=== PATIENT | female | born 1950 | race Caucasian/White ===

== ENCOUNTER 2023-07-15 19:13 | Inpatient (IN) | payer OTHER ==
[~2023-07-15] VITALS: Ht 165.1 cm; Wt 135.6 kg
[2023-07-15 19:18] VITALS: BP 101/55; PULSE 58; RESP 20; TEMP 98.1; O2SAT 100
[2023-07-15 20:15] LABS: BASOPHILS # (AUTO) 0.1 K/uL (0.00-0.22); EOSINOPHILS # (AUTO) 0.4 K/uL (0-0.4); EOSINOPHILS % (AUTO) 4.1 % (0.0-4.0); HEMOGLOBIN 9.9 g/dL (12.0-16.0); LYMPHOCYTES # (AUTO) 1.5 K/uL (2.5-16.5); MEAN CORPUSCULAR HEMOGLOBIN 29 pg (27-31); MEAN CORPUSCULAR HGB CONC 33 g/dL (33-37); MEAN CORPUSCULAR VOLUME 87.7 fL (80-94); MONOCYTES # (AUTO) 0.8 K/uL (0.8-1.0); MONOCYTES % (AUTO) 9.4 % (1.7-9.3); NEUTROPHILS # (AUTO) 5.7 K/uL (1.8-7.7); NEUTROPHILS % (AUTO) 67.5 % (42.2-75.2); PLATELET COUNT (AUTO) 242 K/uL (140-450); RED BLOOD CELL COUNT(AUTO) 3.42 MIL/uL (4.20-5.40); RED CELL DISTRIBUTION WIDTH 17.7 % (11.6-13.7); WHITE BLOOD COUNT (AUTO) 8.5 K/uL (4.8-10.8)
[2023-07-15 20:31] LABS: ALANINE AMINOTRANSFERASE 7 U/L (12-78); ALBUMIN 2.3 g/dL (3.4-5.0); ALKALINE PHOSPHATASE 95 U/L (50-136); ANION GAP 9.9 (8-16); ASPARTATE AMINOTRANSFERASE 13 U/L (15-37); CALCIUM 8.9 mg/dL (8.5-10.1); CARBON DIOXIDE 31.1 mmol/L (21-32); CHLORIDE 110 mmol/L (98-107); CREATININE 1.3 mg/dL (0.6-1.3); GLUCOSE 95 mg/dL (74-106); SODIUM SERUM 147 mmol/L (136-145); TOTAL BILIRUBIN 0.4 mg/dL (0.0-1.0); TOTAL PROTEIN, SERUM 6.4 g/dL (6.4-8.2); UREA NITROGEN, BLOOD 22 mg/dL (7-18)
[2023-07-15 21:00] LABS: BLOOD GAS BASE EXCESS 0.1 mmol/L (-2.0-2.0); BLOOD GAS PCO2 41.5 mmHg (35-45); BLOOD GAS PH 7.398 (7.35-7.45); BLOOD GAS PO2 83.3 mmHg (75-100)
[2023-07-15 21:01] LABS: BLOOD GAS O2 SAT% 95.8 % (92.0-98.5)
[2023-07-15 21:48] LABS: ACETAMINOPHEN < 0.5 ug/ml (10-30); ALCOHOL, BLOOD < 3 mg/dL (<10); SALICYLATE < 2.8 mg/dL (2.8-20.0)
[2023-07-15] MEDS ORDERED: AZITHROMYCIN 250 MG TAB PO ONE (21:55)
[2023-07-15] MEDS ORDERED: cefTRIAXone 1,000 MG VIAL ONE (23:17)
[2023-07-15 23:52] LABS: AMPHETAMINE, URINE NEGATIVE ng/ml (NEG <=1000); BARBITURATE, URINE NEGATIVE ng/ml (NEG <=200); BENZODIAZEPINE, URINE NEGATIVE ng/mL (NEG <=200); CANNABINOID, URINE NEGATIVE ng/mL (NEG <=50); COCAINE, URINE NEGATIVE ng/mL (NEG <=300); OPIATE, URINE POSITIVE ng/mL (NEG <=2000); PHENCYCLIDINE SCREEN,URINE NEGATIVE ng/mL (NEG <=25)
[2023-07-16] VITALS (7 sets, daily range): BP systolic 113–114; BP diastolic 62–72; PULSE 59–66; RESP 14–18; TEMP 97.5–98.2; O2SAT 94–98
[2023-07-16] MEDS ORDERED: AZITHROMYCIN 500 MG INJ VIAL IV ONE (01:18)
[2023-07-16] MEDS: AZITHROMYCIN 500 MG in DEXTROSE 5% 250 ML IV ONE (01:31)
[2023-07-16] MEDS ORDERED: DOCUSATE SODIUM 100 MG GELCAP PO PRN (02:25)
[2023-07-16] MEDS ORDERED: guaiFENesin DM 200/20 MG-10 ML 10 ML UDC PO PRN (02:25)
[2023-07-16] MEDS ORDERED: ONDANSETRON 4 MG/2 ML VIAL IM/IVP PRN (02:25)
[2023-07-16] MEDS: NACL 0.9% 1,000 ML IV SCH (04:30)
[2023-07-16] MEDS: LEVOFLOXACIN 750 MG/D5W PREMIX 150 ML IV SCH (04:33)
[2023-07-16] MEDS ORDERED: BUDE1AER IH (04:42)
[2023-07-16] MEDS ORDERED: FAMO-92 PO (04:42)
[2023-07-16] MEDS ORDERED: HYDR2TAB6 PO (04:42)
[2023-07-16] MEDS ORDERED: LOSA-272 PO (04:42)
[2023-07-16] MEDS ORDERED: GEMF600T5 PO (04:42)
[2023-07-16] MEDS ORDERED: CLOP75TA55 PO (04:42)
[2023-07-16] MEDS ORDERED: CITA20TA15 PO (04:42)
[2023-07-16] MEDS ORDERED: CLON0.5T PO (04:42)
[2023-07-16] MEDS ORDERED: GABA400C PO (04:42)
[2023-07-16] MEDS ORDERED: LISI5TAB18 PO (04:42)
[2023-07-16] MEDS ORDERED: BACL10TA4 PO (04:42)
[2023-07-16] MEDS ORDERED: LOVA40TA4 PO (04:42)
[2023-07-16] MEDS: ALBUTEROL SULFATE/IPRATROPIU 3 ML SOL IH SCH (07:01)
[2023-07-16] MEDS: PANTOPRAZOLE 40 MG TABEC PO SCH (09:00)
[2023-07-16 09:33] LABS: BASOPHILS % (AUTO) 0.7 % (0.0-2.0); EOSINOPHILS # (AUTO) 0.2 K/uL (0-0.4); EOSINOPHILS % (AUTO) 2.8 % (0.0-4.0); HEMATOCRIT 32.2 % (36-48); HEMOGLOBIN 10.3 g/dL (12.0-16.0); LYMPHOCYTES # (AUTO) 0.8 K/uL (2.5-16.5); LYMPHOCYTES % (AUTO) 10.9 % (20.5-51.1); MEAN CORPUSCULAR HEMOGLOBIN 28 pg (27-31); MEAN CORPUSCULAR HGB CONC 32 g/dL (33-37); MEAN CORPUSCULAR VOLUME 88.4 fL (80-94); MONOCYTES # (AUTO) 0.5 K/uL (0.8-1.0); MONOCYTES % (AUTO) 7.7 % (1.7-9.3); NEUTROPHILS # (AUTO) 5.5 K/uL (1.8-7.7); NEUTROPHILS % (AUTO) 77.9 % (42.2-75.2); PLATELET COUNT (AUTO) 190 K/uL (140-450); RED BLOOD CELL COUNT(AUTO) 3.64 MIL/uL (4.20-5.40); RED CELL DISTRIBUTION WIDTH 17.7 % (11.6-13.7); WHITE BLOOD COUNT (AUTO) 7.1 K/uL (4.8-10.8)
[2023-07-16 09:45] LABS: ALBUMIN 2.4 g/dL (3.4-5.0); ALKALINE PHOSPHATASE 103 U/L (50-136); ASPARTATE AMINOTRANSFERASE 15 U/L (15-37); CALCIUM 9.2 mg/dL (8.5-10.1); CARBON DIOXIDE 27.6 mmol/L (21-32); CHLORIDE 109 mmol/L (98-107); CREATININE 1.1 mg/dL (0.6-1.3); GLUCOSE 99 mg/dL (74-106); MAGNESIUM 2.1 mg/dL (1.8-2.4); PHOSPHORUS 3.5 mg/dL (2.5-4.9); POTASSIUM 4.6 mmol/L (3.5-5.1); SODIUM SERUM 145 mmol/L (136-145); TOTAL BILIRUBIN 0.4 mg/dL (0.0-1.0); TOTAL PROTEIN, SERUM 6.8 g/dL (6.4-8.2); UREA NITROGEN, BLOOD 18 mg/dL (7-18)
[2023-07-16 09:56] LABS: ALANINE AMINOTRANSFERASE 4 U/L (12-78)
[2023-07-16] MEDS: gemfibroziL 600 MG TAB PO SCH (20:41)
[2023-07-17] VITALS: PULSE 55
[2023-07-17] MEDS: ZOLPIDEM 5 MG TAB PO PRN (00:20)
[2023-07-17 04:00] VITALS: PULSE 60
[2023-07-17 08:00] VITALS: BP 130/62; PULSE 61; RESP 20; TEMP 97.7; O2SAT 96
[2023-07-17] MEDS: lisinopriL 5 MG TAB PO SCH (08:34)
[2023-07-17] MEDS: GABAPENTIN 100 MG CAP PO SCH (08:34)
[2023-07-17] MEDS: CLOPIDOGREL 75 MG TAB PO SCH (08:35)
[2023-07-17] MEDS: Z-GUARD PASTE TP ONE (10:50)
[2023-07-17 12:00] VITALS: BP 109/90; PULSE 72; RESP 18; TEMP 98; O2SAT 99
[2023-07-17 16:00] VITALS: BP 137/65; PULSE 68; RESP 20; TEMP 97.3; O2SAT 100
[2023-07-17 20:00] VITALS: BP 104/69; PULSE 78; RESP 18; RESP 19; TEMP 98.1; O2SAT 100; O2SAT 94
[2023-07-18 08:00] VITALS: PULSE 78; RESP 18; RESP 19; O2SAT 100; O2SAT 94
[2023-07-18] MEDS ORDERED: Z-GUARD PASTE TP SCH (15:10)
[2023-07-18 20:00] VITALS: BP 155/76; PULSE 91; RESP 20; TEMP 98.2; O2SAT 100; O2SAT 95
[2023-07-19 08:00] VITALS: BP 154/68; PULSE 98; RESP 20; TEMP 98.2; O2SAT 97
[2023-07-19 12:39] LABS: BASOPHILS # (AUTO) 0.1 K/uL (0.00-0.22); BASOPHILS % (AUTO) 0.7 % (0.0-2.0); EOSINOPHILS # (AUTO) 0.1 K/uL (0-0.4); EOSINOPHILS % (AUTO) 0.9 % (0.0-4.0); LYMPHOCYTES # (AUTO) 1.3 K/uL (2.5-16.5); LYMPHOCYTES % (AUTO) 12.4 % (20.5-51.1); MEAN CORPUSCULAR HEMOGLOBIN 29 pg (27-31); MEAN CORPUSCULAR HGB CONC 35 g/dL (33-37); MEAN CORPUSCULAR VOLUME 84.5 fL (80-94); MONOCYTES # (AUTO) 0.7 K/uL (0.8-1.0); MONOCYTES % (AUTO) 6.8 % (1.7-9.3); NEUTROPHILS # (AUTO) 8.4 K/uL (1.8-7.7); NEUTROPHILS % (AUTO) 79.2 % (42.2-75.2); PLATELET COUNT (AUTO) 222 K/uL (140-450); RED BLOOD CELL COUNT(AUTO) 3.79 MIL/uL (4.20-5.40); RED CELL DISTRIBUTION WIDTH 17.7 % (11.6-13.7); WHITE BLOOD COUNT (AUTO) 10.6 K/uL (4.8-10.8)
[2023-07-19] MEDS ORDERED: GABAPENTIN 100 MG CAP PO SCH (13:00)
[2023-07-19 13:20] LABS: ALANINE AMINOTRANSFERASE 11 U/L (12-78); ALBUMIN 2.6 g/dL (3.4-5.0); ALKALINE PHOSPHATASE 95 U/L (50-136); ANION GAP 18.4 (8-16); ASPARTATE AMINOTRANSFERASE 19 U/L (15-37); CARBON DIOXIDE 20.8 mmol/L (21-32); CHLORIDE 106 mmol/L (98-107); CREATININE 0.9 mg/dL (0.6-1.3); GLUCOSE 81 mg/dL (74-106); POTASSIUM 3.2 mmol/L (3.5-5.1); SODIUM SERUM 142 mmol/L (136-145); TOTAL PROTEIN, SERUM 6.8 g/dL (6.4-8.2); UREA NITROGEN, BLOOD 13 mg/dL (7-18)
[2023-07-19 13:38] VITALS: PULSE 89; RESP 16; O2SAT 98
[2023-07-19] MEDS: GABAPENTIN 100 MG CAP PO SCH (13:44)
[2023-07-19] MEDS: POTASSIUM CHLORIDE 10 MEQ TABER PO PRN (14:59)
[2023-07-19 16:00] VITALS: BP 145/73; PULSE 86; RESP 18; TEMP 98.1; O2SAT 97
[2023-07-19] MEDS: GABAPENTIN 300 MG CAP PO SCH (17:44)
[2023-07-19 19:49] VITALS: O2SAT 95
[2023-07-19 20:00] VITALS: PULSE 85; RESP 20; O2SAT 95
[2023-07-19] MEDS: ALBUTEROL SULFATE/IPRATROPIU 3 ML SOL IH PRN (23:31)
[2023-07-19 23:33] VITALS: PULSE 83; RESP 16; O2SAT 95
[2023-07-20] VITALS (7 sets, daily range): BP systolic 99–133; BP diastolic 37–82; PULSE 80–102; RESP 16–20; TEMP 97.8–98.9; O2SAT 94–97
[2023-07-20] MEDS: ACETAMINOPHEN 325 MG TAB PO PRN (00:37)
[2023-07-20 05:28] LABS: BASOPHILS # (AUTO) 0.1 K/uL (0.00-0.22); EOSINOPHILS # (AUTO) 0.2 K/uL (0-0.4); EOSINOPHILS % (AUTO) 1.9 % (0.0-4.0); HEMATOCRIT 29.1 % (36-48); HEMOGLOBIN 10.1 g/dL (12.0-16.0); LYMPHOCYTES # (AUTO) 1.5 K/uL (2.5-16.5); LYMPHOCYTES % (AUTO) 14.7 % (20.5-51.1); MEAN CORPUSCULAR HEMOGLOBIN 29 pg (27-31); MEAN CORPUSCULAR HGB CONC 35 g/dL (33-37); MEAN CORPUSCULAR VOLUME 84.8 fL (80-94); MONOCYTES # (AUTO) 0.9 K/uL (0.8-1.0); MONOCYTES % (AUTO) 9.4 % (1.7-9.3); NEUTROPHILS # (AUTO) 7.2 K/uL (1.8-7.7); PLATELET COUNT (AUTO) 199 K/uL (140-450); RED BLOOD CELL COUNT(AUTO) 3.43 MIL/uL (4.20-5.40); RED CELL DISTRIBUTION WIDTH 17.7 % (11.6-13.7); WHITE BLOOD COUNT (AUTO) 9.9 K/uL (4.8-10.8)
[2023-07-20 05:55] LABS: ALANINE AMINOTRANSFERASE 11 U/L (12-78); ALBUMIN 2.6 g/dL (3.4-5.0); ALKALINE PHOSPHATASE 89 U/L (50-136); ANION GAP 16.8 (8-16); ASPARTATE AMINOTRANSFERASE 21 U/L (15-37); CALCIUM 9.1 mg/dL (8.5-10.1); CARBON DIOXIDE 21.8 mmol/L (21-32); CHLORIDE 107 mmol/L (98-107); CREATININE 0.9 mg/dL (0.6-1.3); GLUCOSE 74 mg/dL (74-106); POTASSIUM 3.6 mmol/L (3.5-5.1); SODIUM SERUM 142 mmol/L (136-145); TOTAL PROTEIN, SERUM 6.5 g/dL (6.4-8.2); UREA NITROGEN, BLOOD 14 mg/dL (7-18)
[2023-07-20] MEDS: HYDROcodone/APAP 7.5/325 MG 1 TAB PO PRN (09:19)
[2023-07-20] MEDS: Z-GUARD PASTE TP ONE (14:23)
[2023-07-21 01:41] VITALS: PULSE 75; RESP 18; O2SAT 96
[2023-07-21 05:54] LABS: BASOPHILS # (AUTO) 0.1 K/uL (0.00-0.22); BASOPHILS % (AUTO) 1.5 % (0.0-2.0); EOSINOPHILS # (AUTO) 0.4 K/uL (0-0.4); EOSINOPHILS % (AUTO) 4.8 % (0.0-4.0); HEMATOCRIT 26.2 % (36-48); HEMOGLOBIN 8.9 g/dL (12.0-16.0); LYMPHOCYTES # (AUTO) 1.6 K/uL (2.5-16.5); LYMPHOCYTES % (AUTO) 18.7 % (20.5-51.1); MEAN CORPUSCULAR HEMOGLOBIN 29 pg (27-31); MEAN CORPUSCULAR HGB CONC 34 g/dL (33-37); MEAN CORPUSCULAR VOLUME 85.8 fL (80-94); MONOCYTES # (AUTO) 0.9 K/uL (0.8-1.0); MONOCYTES % (AUTO) 10.9 % (1.7-9.3); NEUTROPHILS # (AUTO) 5.6 K/uL (1.8-7.7); NEUTROPHILS % (AUTO) 64.1 % (42.2-75.2); PLATELET COUNT (AUTO) 176 K/uL (140-450); RED BLOOD CELL COUNT(AUTO) 3.05 MIL/uL (4.20-5.40); RED CELL DISTRIBUTION WIDTH 18.1 % (11.6-13.7); WHITE BLOOD COUNT (AUTO) 8.7 K/uL (4.8-10.8)
[2023-07-21 06:43] LABS: ALANINE AMINOTRANSFERASE 12 U/L (12-78); ALBUMIN 2.3 g/dL (3.4-5.0); ALKALINE PHOSPHATASE 79 U/L (50-136); ANION GAP 15.6 (8-16); ASPARTATE AMINOTRANSFERASE 17 U/L (15-37); CALCIUM 8.3 mg/dL (8.5-10.1); CHLORIDE 109 mmol/L (98-107); CREATININE 1.3 mg/dL (0.6-1.3); GLUCOSE 107 mg/dL (74-106); POTASSIUM 3.6 mmol/L (3.5-5.1); SODIUM SERUM 143 mmol/L (136-145); TOTAL BILIRUBIN 0.7 mg/dL (0.0-1.0); TOTAL PROTEIN, SERUM 5.7 g/dL (6.4-8.2); UREA NITROGEN, BLOOD 17 mg/dL (7-18)
[2023-07-21 07:50] VITALS: O2SAT 96
[2023-07-21 08:24] VITALS: PULSE 66; RESP 18; O2SAT 98
[2023-07-21 13:28] VITALS: PULSE 85; RESP 16; O2SAT 95
[2023-07-21] MEDS ORDERED: Z-GUARD PASTE TP ONE ×2 (15:00→15:01)
[2023-07-21] MEDS ORDERED: HYDRAGUARD CREAM TP SCH (15:10)
== END 2023-07-21 15:30 | disposition home health service (06) | DRG 91 ==
LOC: MED 19:13 → MTU 07-16 02:23 → MMU 07-18 03:53
PROVIDERS: ADMIT Student in an Organized Health Care Education/Training Program; ATTEND Student in an Organized Health Care Education/Training Program
DX: G92.8 Other toxic encephalopathy (principal); J15.69 Pneumonia due to other Gram-negative bacteria; E44.1 Mild protein-calorie malnutrition; J44.0 Chronic obstructive pulmonary disease with (acute) lower respiratory infection; Z68.42 Body mass index [BMI] 45.0-49.9, adult; T50.915A Adverse effect of multiple unspecified drugs, medicaments and biological substances, initial encounter; I10 Essential (primary) hypertension; Z88.6 Allergy status to analgesic agent; Y92.89 Other specified places as the place of occurrence of the external cause
CPT/HCPCS: 36415; 36600; 70450; 71045; 73562; 80053; 80305; 82803; 83735; 83880; 84100; 84484; 85025; 87040; 87081; 93005; 94640; 96365; 96367; 97110; 97163-GP; 97530; 99285; G0480; G0482; J0456; J0696; J1644; J1956; Q0092